=== PATIENT | female | born 1965 | race Caucasian/White ===

== ENCOUNTER → 2024-05-07 13:04 | Outpatient (REF) | payer BC, SELFPAY | LOC: HWRAD 13:04 | PROVIDERS: ATTENDING PHYSICIAN Surgery; FAMILY PHYSICIAN Physician Assistant Medical | DX: Q63.0 Accessory kidney (principal) | CPT/HCPCS: 76775 ==

== ENCOUNTER 2024-05-16 06:32 | Inpatient (IN) | payer BC, SELFPAY ==
[2024-05-07 09:17] LABS: Hematocrit 41.2 % (37.0-47.0); Hemoglobin 14.1 g/dL (12.0-16.0); Mean Corp Hgb Conc. 34.2 g/dL (33.0-37.0); Mean Corpuscular Hgb 30.5 pg (27.0-31.0); Mean Platelet Volume 11.4 fL (7.4-10.4); Platelet Count 287 10^3/uL (130-400); Red Blood Cell Count 4.63 10^6/uL (4.20-5.40); Red Cell Dist. Width 12.7 % (11.5-14.5); White Blood Cell Count 4.9 10^3/uL (4.8-10.8)
[2024-05-07 09:27] LABS: ALT (SGPT) 16 U/L (0-35); AST (SGOT) 24 U/L (14-36); Albumin 4.5 g/dl (3.5-5.0); Alkaline Phosphatase 79 U/L (38-126); Blood Urea Nitrogen 22 mg/dl (7-17); Calcium 9.8 mg/dl (8.4-10.2); Carbon Dioxide 29 mmol/L (22-30); Chloride 101 mmol/L (98-107); Glucose 88 mg/dl (70-99); Sodium 139 mmol/L (135-145); Total Bilirubin 0.7 mg/dl (0.2-1.3); eGFR > 60.00
[2024-05-07 09:29] LABS: INR 0.96; PT 13.3 Sec (11.4-14.6)
[2024-05-16] VITALS (22 sets, daily range): BP systolic 88–125; BP diastolic 49–87; BMI 20.8
[2024-05-16] MEDS: TYLENOL 1000 MG PO (06:46)
[2024-05-16] MEDS: ENTEREG 12 MG PO (06:46)
[2024-05-16] MEDS: NORMOSOL-R/PLASMALYTE-A 1000 IV ×3 (06:46→23:19)
[2024-05-16] MEDS: HEPARIN 5000 UNITS SC (06:46)
--- NOTE | 2024-05-16 10:32 | W.IMMPOSTOP ---
Documented by User: ANGEL Bowser 05/16/24 10:38
Surgical Immed Post Op Note
-
Primary Surgeon: Matthew Gee MD
Final Block Press Operator: Yony Griggs
Pre-op Diagnosis: Rectal prolapse
Post-op Diagnosis: same
Procedure Performed: Robotic ventral mesh rectopexy
Anesthesia Type: GET
Specimen / Cultures: none
Estimated Blood Loss: 12 mL
Complications: None
Operative Findings: Rectal prolapse
Her was called and updated.

Documented by User: Morgan Gee MD 05/16/24 10:41
Surgical Immed Post Op Note
-
Primary Surgeon: Matthew Gee MD
Final Block Press Operator: Yony Griggs, [place] Capps, GREGORIOS
Pre-op Diagnosis: Rectal prolapse
Post-op Diagnosis: same
Procedure Performed: Robotic ventral mesh rectopexy
Anesthesia Type: GET
Specimen / Cultures: none
Estimated Blood Loss: 12 mL
Complications: None
Operative Findings: Rectal prolapse
Her was called and updated.
[2024-05-16] MEDS: DILAUDID 0.25 MG IV (11:36)
[2024-05-16] MEDS: TORADOL 15 MG IV ×3 (11:40→23:19)
[2024-05-16] MEDS: DEMEROL 12.5 MG IV ×2 (11:45→11:55)
--- NOTE | 2024-05-16 12:18 | SUR.PHASEI ---
patient c/o back pain, catheter discomfort. Attempt reposition and back rub - then Dilaudid 0.25mg IV for pain, toradol scheduled dose started. Multiple reposition for comfort At 11:45 begins with shivers - states ' this always happens to me
under stress' Demerol 12.5mg given x2 for shivers and pain. Relief of both. able to wean off O2. Sleeps. incontinent of small amount of liquid stool - perirectal area reddened. [place] with large amount of urine, shreds of clotting. await floor
room availability.
--- NOTE | 2024-05-16 14:13 | SUR.PHASEI ---
feels better, turning self in bed with minimal assistance, urine remains bloody. incontinent intermittently of yellow liquid stool ; skin care and perirectal area reddened - patient states from prep.
--- NOTE | 2024-05-16 15:44 | PTCARENOTE ---
pt arrived 1515. AO. no c/o pain. NormR 80 via LH 20. chronic back pain many pillows. in room. CLD, ice chips given by request.
[2024-05-16] MEDS: TYLENOL PO ×2 (16:54→16:55)
[2024-05-16] MEDS: TYLENOL 650 MG PO (19:22)
[2024-05-17] MEDS: TYLENOL PO ×3 (01:29→13:50)
[2024-05-17 03:00] VITALS: BP 95/54
[2024-05-17] MEDS: TORADOL 15 MG IV (05:55)
[2024-05-17 07:12] VITALS: BP 109/55
[2024-05-17 08:16] LABS: % Basophils 0.3 % (0-2); % Eosinophils 0.2 % (0-6); % Immature Granulocytes 0.2 % (0-0.5); % Lymphocytes 25.3 % (20.5-51.1); % Monocytes 8.2 % (1.7-9.3); % Neutrophils 65.8 % (42.2-75.2); Absolute Lymphocytes 2.3 10^3/uL (1.2-3.4); Absolute Monocytes 0.7 10^3/uL (0.1-0.6); Absolute Neutrophils 5.9 10^3/uL (1.4-6.5); Hematocrit 34.2 % (37.0-47.0); Hemoglobin 12.2 g/dL (12.0-16.0); Mean Corp Hgb Conc. 35.7 g/dL (33.0-37.0); Mean Corpuscular Hgb 30.9 pg (27.0-31.0); Mean Corpuscular Volume 86.6 fL (81.0-99.0); Mean Platelet Volume 12.1 fL (7.4-10.4); Nucleated Red Blood Cells % 0 %; Platelet Count 235 10^3/uL (130-400); Red Blood Cell Count 3.95 10^6/uL (4.20-5.40); Red Cell Dist. Width 12.3 % (11.5-14.5); White Blood Cell Count 8.9 10^3/uL (4.8-10.8)
[2024-05-17 08:35] LABS: Blood Urea Nitrogen 11 mg/dl (7-17); Calcium 8.8 mg/dl (8.4-10.2); Carbon Dioxide 23 mmol/L (22-30); Chloride 102 mmol/L (98-107); Estimated Creatinine Clearance 75 ml/min; Glucose 70 mg/dl (70-99); Potassium 3.8 mmol/L (3.5-5.1); Sodium 135 mmol/L (135-145); eGFR > 60.00
--- NOTE | 2024-05-17 09:55 | W.PN.GS2 ---
Addendum entered and electronically signed by Chad Ratliff MD 05/17/24 10:20:
Patient seen and examined with surgical YARN EXAMINER. Agree with documented progress note.
Patient offers no complaints other than discomfort and irritation from Cifuentes and stents
Passing flatus and had bowel movements
AFVSS
ABD: Soft, nondistended, minimal tenderness palpation only at incision sites. Incisions with glue dressings.
A/P: POD #1
Cifuentes and stents removed at bedside
Diet as tolerated
Voiding trial
Probable DC in p.m.
Original Note:
Today's Communication / Plan
-
d/c cifuentes
advance diet
dispo planning
Assessment / Plan
-
59 yo female with a h/o rectal prolapse now POD #1 robotic ventral mesh rectopexy with ureteral stents placed intraop for identification of the ureters
AFVSS
Following expected post op course
Good bowel recovery thus far with +flatus
Mild hematuria as expected with stents, cifuentes and final stent removed at bedside
Labs stable post op
--Advance to regular diet
--Void trial today
--D/C IVF
--Analgesics scheduled and prn
--Lovenox and SCDs for VTE ppx
Tentative d/c later today vs tomorrow pending patient course
Subjective Data
-
Date of Service: May 17, 2024
Patient seen and examined at bedside with Dr. Ratliff. Denies n/v. Tolerating clears. Passing flatus. Minimal abdominal discomfort.
Objective Data
-
Intake and Output
05/16/24 05/17/24 05/18/24
06:59 06:59 06:59
Intake Total 2319 / 2319
Output Total 2324 / 2324
Balance -5 / -5
Intake:
Oral fluids 770 / 770
IV fluids (Total) 1550 / 1550
normosol 550 / 550
Output:
Urine, Cifuentes 2325 / 2325
Other:
Number of approximated MODERATE 1
amounts of urine
Vital Signs
Temp Pulse Resp BP Pulse Ox
99.1 F 83 16 109/55 98
05/17/24 07:12 05/17/24 07:12 05/17/24 07:12 05/17/24 07:12 05/17/24 07:12
Lab Results
05/17/24 06:14
05/17/24 06:14
Calcium 8.8 mg/dl (8.4-10.2) 05/17/24 06:14
Total Bilirubin 0.7 mg/dl (0.2-1.3) 05/07/24 07:26
AST 24 U/L (14-36) 05/07/24 07:26
ALT 16 U/L (0-35) 05/07/24 07:26
Alkaline Phosphatase 79 U/L (38-126) 05/07/24 07:26
Total Protein 7.0 g/dl (6.3-8.2) 05/07/24 07:26
Albumin 4.5 g/dl (3.5-5.0) 05/07/24 07:26
Physical Exam
-
NAD
ABD soft, minimal tenderness, ND
Incisions clear with intact glue
Patient has a cifuentes catheter: Yes (removed with stent)
Patient has a central line: No
[2024-05-17] MEDS: TYLENOL 650 MG PO ×2 (09:58→16:58)
[2024-05-17] MEDS: ENTEREG 12 MG PO (10:01)
[2024-05-17 11:20] VITALS: BP 99/54
--- NOTE | 2024-05-17 13:36 | CM ---
Patient seen at bedside. Patient states that she lives with her in a 3 story home. Patient stated it has 13 steps. Patient PCP is Dr. Ashley Reyes from [facility]. Patient uses the [facility] on [address]. Patient does not anticipate
any discharge needs at this time. CM will continue to follow for discharge planning needs.
Plan; home with no needs anticipated
[2024-05-17] MEDS: TORADOL IV ×2 (13:50→16:58)
[2024-05-17 15:09] VITALS: BP 116/69
--- NOTE | 2024-05-17 16:41 | W.DS.TRANS ---
Addendum entered and electronically signed by WERNER Childress 05/18/24 12:00:
dictated #[id number]
Original Note:
DC Summary - Chronic Disease Manager
-
Discharge Instructions:
Discharge Diagnosis/Procedures Robotic ventral mesh rectopexy
Diet Regular,As tolerated
Activity No strenuous activity
Additional Activity Do not lift over 10lbs (gallon of milk)
Driving Restrictions Wait until comfortable twisting/off narcotics
Bathing Restrictions OK to Shower
Wound Care Wash incisions gently with soap and water. Allow
the glue to flake off on its own over the next
2-3 weeks. Avoid picking or scrubbing off the
glue.
Instructions:
Stand-Alone Forms:
Changes to Home Medications: No
Discharge Medications:
DC Medications w/original date entered in [employer]
acetaminophen 325 mg tablet 650 mg (2 x 325 mg) PO Q4HPRN PRN mild pain #1 tab 05/17/24
ibuprofen 200 mg tablet 400 - 600 mg (2 - 3 x 200 mg) PO Q6HPRN PRN moderate pain #1 tab 05/17/24
Home Medication Changes
Pending Results: No
== END 2024-05-17 18:35 | disposition home or self-care (01) | DRG 331 ==
LOC: 2 SOUTH 06:32
PROVIDERS: ADMITTING PHYSICIAN Surgery; FAMILY PHYSICIAN Physician Assistant Medical
PROC: 8E0W4CZ Robotic Assisted Procedure of Trunk Region, Percutaneous Endoscopic Approach (ICD-10-PCS; 2024-05-16)
PROC: 0DSP4ZZ Reposition Rectum, Percutaneous Endoscopic Approach (ICD-10-PCS; 2024-05-16)
PROC: 0DUP4JZ Supplement Rectum with Synthetic Substitute, Percutaneous Endoscopic Approach (ICD-10-PCS; 2024-05-16)
DX: K62.3 Rectal prolapse (principal)
CPT/HCPCS: 36415; 80048; 80053; 83036; 85025; 85027; 85610; 85730; 86850; 86900; 86901; 93005; C1781; J1335

== ENCOUNTER 2024-08-13 15:52 | Day surgery (SDC) | payer BC, SELFPAY ==
[2024-08-13] VITALS (9 sets, daily range): BP systolic 97–129; BP diastolic 63–86; BMI 21.4
[2024-08-13] MEDS: TYLENOL 1000 MG PO (06:32)
[2024-08-13] MEDS: NORMOSOL-R/PLASMALYTE-A 1000 IV (06:38)
== END 2024-08-13 15:53 | disposition home or self-care (01) ==
LOC: SDS 15:52
PROVIDERS: ATTENDING PHYSICIAN Surgery; FAMILY PHYSICIAN Physician Assistant Medical
DX: K62.2 Anal prolapse (principal)
CPT/HCPCS: 45541; 88304; J1335

== ENCOUNTER → 2024-10-17 08:35 | Outpatient (REF) | payer SELFPAY | LOC: HWRAD 08:35 | PROVIDERS: ATTENDING PHYSICIAN Physician Assistant Medical | DX: E78.49 Other hyperlipidemia (principal) | CPT/HCPCS: 75571 ==

== ENCOUNTER → 2025-04-10 08:33 | Outpatient (REF) | payer BC, SELFPAY | LOC: WDC 08:33 | PROVIDERS: ATTENDING PHYSICIAN Physician Assistant Medical | DX: R92.30 Dense breasts, unspecified (principal) | CPT/HCPCS: 76641 ==